=== PATIENT | male | born 1950 | race Caucasian/White ===

== ENCOUNTER 2021-03-10 22:26 | Emergency (ER) | payer MEDICARE ==
[2021-03-10] MEDS ORDERED: CEPHALEXIN500 M1 PO (23:12)
== END 2021-03-10 23:18 | disposition home or self-care (01) ==
LOC: FER 22:26
DX: S51.812A Laceration without foreign body of left forearm, initial encounter (principal); E03.9 Hypothyroidism, unspecified; Z79.899 Other long term (current) drug therapy; Z88.8 Allergy status to other drugs, medicaments and biological substances; Z23 Encounter for immunization
CPT/HCPCS: 90471; 90715

== ENCOUNTER → 2022-06-14 | Day surgery (SDC) | payer MEDICARE ==
[~2022-06-14] VITALS: Ht 175.3 cm; Wt 97.5 kg
[~2022-06-14] MED LIST: ASCORBIC ACID500 MG PO; ASPIRIN EC81 MG PO; CEPHALEXIN500 M1 PO; EUTHYROX25 MCG PO; MAGNESIUM250 MG PO; METOPROLOL SUC100 MG PO; POTASSIUM99 M3 PO; SELENIUM200 MC2 PO; VITAMIN D3125 MCG PO; ZINC50 M2 PO
[2022-06-14 09:24] LABS: HCT 46.3 % (42.0-52.0); HGB 15.9 g/dl (13.2-18.0); MCH 31.5 pg (25.0-31.0); MCHC 34.3 g/dL (32.0-36.0); MCV 91.9 fL (78.0-100.0); MPV 9.7 fL (6.0-9.5); RBC 5.04 M/uL (4.70-6.00); RDW 12.6 % (11.5-14.0); WBC 7.3 K/uL (4.0-10.5)
[2022-06-14 09:57] LABS: ALBUMIN 4.1 g/dL (3.4-5.0); BILIRUBIN - TOTAL 1.1 mg/dL (0.2-1.0); BUN/CREAT RATIO (CALC) 25.5 RATIO; CREATININE 0.94 mg/dL (0.67-1.17); GLOBULIN (CALCULATION) 3.4 g/dL; POTASSIUM 4.2 mmol/L (3.5-5.1); TOTAL PROTEIN 7.5 g/dL (6.4-8.2)
== END | disposition home or self-care (01) ==
LOC: FAS 08:30
PROVIDERS: Surgery
DX: Z12.11 Encounter for screening for malignant neoplasm of colon (principal); K57.30 Diverticulosis of large intestine without perforation or abscess without bleeding; I10 Essential (primary) hypertension; E03.9 Hypothyroidism, unspecified; Z86.010 Personal history of colon polyps; Z79.82 Long term (current) use of aspirin
CPT/HCPCS: 36415; 80053; J0690; J1610; J2250; J2704; J7120